=== PATIENT | male | born 1985 | race Caucasian/White ===

== ENCOUNTER 2016-10-31 09:09 | Emergency (ER) | payer SELFPAY ==
--- NOTE | 2016-10-31 09:42 | PDOC ---
General Adult HPI - General Chief Complaint: Drug / Alcohol Use &/or Abuse Stated Complaint: [place]ED [place]/METH USE x1 WEEK Date Seen by Provider: 10/31/16 Time Seen by Provider: 09:15 Source: POSITIVE: Patient Exam Limitations: POSITIVE: No limitations Nurse's Notes Reviewed & Considered: Yes - History of Present Illness Initial Comment: The patient is a 31-year-old male who presents to the emergency department by ambulance from [place]. [place] apparently [place] law enforcement. He states that [place] 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 He reports that he has been using for the past week. He states that he was attempting to get away and get off the methadone go camping. To his knowledge she is unaware of using meth last night. He states that he remembers trying to hide from law enforcement last night and then subsequently woke up this morning lying in a ditch. He currently has no complaints of pain. He had a normal temperature of 97 on arrival here. He denies any current prescription medication use. He states he does not drink alcohol or use any other drugs other than meth. He does report a history of hemochromatosis and last had a phlebotomy about 3 weeks ago. 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 DENIES: Abdominal Pain, Vomitting Musculoskeletal: REPORTS: Denies MS Symptoms Genitourinary: REPORTS: Denies Symptoms Eyes: REPORTS: Denies Symptoms ENT: REPORTS: Denies Symptoms Skin: DENIES: Rash General Adult Exam - General Appearance General Appearance: POSITIVE: Alert, Cooperative, No Acute Distress - HEENT HEENT: POSITIVE: Head Inspection Nml, Eyes Inspection Nml, Ears Inspection Nml, Pharynx Inspect. Nml - Neck Neck: POSITIVE: Normal Inspection - Respiratory Respiratory: POSITIVE: No Respiratory Distress, Breath Sounds Normal - Cardiovascular Cardiovascular: POSITIVE: Regular Rate & Rhythm, No Murmur Peripheral Pulses: Radial (R): 2+, Radial (L): 2+ - Abdomen Abdomen: Soft: (All Quadrants), Denies Tenderness: (All Quadrants), No Distention: (All Quadrants) - Skin Skin: POSITIVE: Normal Color, Other (Track jauregui on his arms with a few open areas of excoriation, no evidence of abscess or infection) - Neurological / Psychological Neurological: POSITIVE: Oriented X3, crib attendant Normal As Tested, Sensation Normal, Other (The patient does have frequent involuntary motor movement/tics) General Adult Progress - Results Reviewed by me Lab Results Reviewed: Yes Lab Results:: Laboratory Results 10/31/16 10/31/16 Range/Units 09:20 09:50 WBC 9.80 (4.8-10.8) 10^3/uL RBC 5.31 (4.70-6.10) 10^6/uL Hgb 15.8 (14.0-18.0) g/dL Hct 44.2 (42.0-52.0) % MCV 83.2 (80-90) FL MCH 29.8 (27-31) PG MCHC 35.7 (33-37) g/dL RDW Std Deviation 39.5 (39-50) fL RDW Coeff of Kit 13.1 (11.5-14.5) % Plt Count 303 (140-350) 10*3/uL MPV 10.3 (7.4-12.2) FL Immature Gran % (Auto) 0.3 (0-5) % Neut % (Auto) 66.4 (50-80) % Lymph % (Auto) 19.4 (10-50) % Mellette % (Auto) 10.8 (5-15) % Eos % (Auto) 2.0 (0-8) % Baso % (Auto) 1.1 H (0-1) % Immature Gran # (Auto) 0.03 10*3/UL Neut # (Auto) 6.50 10*3/UL Lymph # (Auto) 1.90 10*3/uL Mellette # (Auto) 1.06 H (0.3-0.8) 10*3/UL Eos # (Auto) 0.20 10*3/UL Baso # (Auto) 0.11 10*3/UL WBC Morphology Comment Normal morphology (NORM) Plt Morphology Comment Normal morphology (NORM) RBC Morph Comment Normal morphology (NORM) Sodium 140 (135-145) meq/L Potassium 3.7 L (3.8-5.2) meq/L Chloride 106 (98-112) meq/L Carbon Dioxide 24 (23-33) meq/L Anion Gap 10 (5-20) BUN 12 (7-22) mg/dL Creatinine 0.8 (0.70-1.50) mg/dL Estimated GFR > 60 (>60 ml/min/1.73m(2)) BUN/Creatinine Ratio 15.00 (6-20) Glucose 77 L (78-110) mg/dL Calculated Osmolality 288.0 (267-292) mOsm/kg Calcium 9.4 (8.7-10.7) mg/dL Total Bilirubin 2.2 H (0.3-1.2) mg/dL AST 41 (21-57) IU/L ALT 67 (21-72) IU/L Alkaline Phosphatase 57 (38-126) IU/L Total Creatine Kinase 466 H (55-170) IU/L Total Protein 6.9 (6.1-8.0) g/dL Albumin 4.2 (3.5-4.8) g/dL Globulin 2.6 (2.50-4.10) g/dL Albumin/Globulin Ratio 1.60 (1.3-2.0) mg/g Ur Collection Type Clean catch urine Urine Color Yellow Urine Clarity Clear (CLEAR) Urine pH 5.5 (5.0-8.5) Ur Specific [place] >=1.030 (1.005-1.030) U Specif Grav (Refrac) 1.028 Urine Protein Negative (NEG) mg/dl Urine Glucose (UA) Negative (NEG) mg/dL Urine Ketones 80 (NEG) Urine Occult Blood Negative (NEG) Urine Nitrate Negative (NEG) Urine Bilirubin Small (NEG) Urine Urobilinogen 1.0 (0.2) EU/dL Ur Leukocyte Esterase Negative (NEG) Ur Culture Indicated? Culture not set Urine Opiates Screen Negative (NEG) Ur Buprenorphine Negative (NEG) Ur Oxycodone Screen Negative (NEG) Urine Methadone Screen Negative (NEG) Ur Propoxyphene Screen Negative (NEG) Barbiturate Screen Negative (NEG) U Tricyclic Antidepress Negative (NEG) Phencyclidine Screen Negative (NEG) Amphetamines Screen Positive H (NEG) U Methamphetamines Scrn Positive H (NEG) Benzodiazepines Screen Negative (NEG) Cocaine Screen Negative (NEG) U Marijuana (THC) Screen Negative (NEG) Serum Alcohol < 10 (0-10) mg/dL - Patient's Progress MDM / ED Course: An IV was established however the patient refused receiving a bolus of saline. He was able to drink water without any difficulty. His lab work is all essentially unremarkable except for a mildly elevated CPK. His urine is concentrated in his tox screen is positive for amphetamine and methamphetamine. His clinical presentation is consistent with methamphetamine abuse. He appears to be clinically stable and will be discharged home with his family. He is to return to the emergency room if he develops any worsening or change in symptoms. - Consult Counseled: POSITIVE: Patient, RE: Lab Results, RE: DX, RE: Need for F/U Patient Care Time - Estimated PCT Patient Care Time (In Minutes): 20 Vital Signs - Recent Vital Signs Vital Signs: Vital Signs (Last 8 hours) Temp Pulse Pulse Resp BP BP Pulse Ox 10/31/16 09:09 97.0 F 79 79 17 109/90 109/90 98 - VS Reviewed Vital Signs Reviewed: Yes Discharge Clinical Impression: Methamphetamine abuse Discharge Disposition: Discharged to Home Condition: Stable Patient Instructions Given at Discharge: Methamphetamine Abuse (ED) Additional Instructions: Your vital signs and temperature were all normal here in the emergency department. Lab work done here in the emergency department was unremarkable except for mild elevation in your muscle enzymes which is likely related to recent methamphetamine use and lying on the ground. Recommended she push fluids. Return to the emergency room if any worsening or change in symptoms. Follow Up With: NONE,NONE [Primary Care Provider] -
[2016-10-31] MEDS: NORMAL SALINE 10 ML SYRINGE FLUSH IVP PRN (09:50)
[2016-10-31] MEDS: Sodium Chloride 0.9% 1,000 ML PRIMARY IV ONE (09:55)
[2016-10-31 10:01] LABS: BASOPHILS # (AUTO) 0.11 10*3/UL; BASOPHILS % (AUTO) 1.1 % (0-1); HEMATOCRIT 44.2 % (42.0-52.0); HEMOGLOBIN 15.8 g/dL (14.0-18.0); MEAN CORPUSCULAR HEMOGLOBIN 29.8 PG (27-31); MEAN CORPUSCULAR HGB CONC 35.7 g/dL (33-37); MEAN CORPUSCULAR VOLUME 83.2 FL (80-90); MEAN PLATELET VOLUME 10.3 FL (7.4-12.2); MONOCYTES # (AUTO) 1.06 10*3/UL (0.3-0.8); MONOCYTES % (AUTO) 10.8 % (5-15); NEUTROPHILS % (AUTO) 66.4 % (50-80); RED BLOOD COUNT 5.31 10^6/uL (4.70-6.10)
[2016-10-31 10:03] LABS: PLATELET MORPHOLOGY COMMENT NORMAL MORPHOLOGY (NORM); RBC MORPHOLOGY COMMENT NORMAL MORPHOLOGY (NORM); WBC MORPHOLOGY COMMENT NORMAL MORPHOLOGY (NORM)
[2016-10-31 10:13] LABS: BLOOD UREA NITROGEN 12 mg/dL (7-22); CALCIUM 9.4 mg/dL (8.7-10.7); EST GLOMERULAR FILTRATION > 60 (>60 ml/min/1.73m(2)); SERUM ALBUMIN 4.2 g/dL (3.5-4.8)
[2016-10-31 10:24] LABS: BILIRUBIN,URINE SMALL (NEG); CLARITY,URINE CLEAR (CLEAR); COLOR,URINE YELLOW; GLUCOSE, URINE (UA) NEGATIVE (NEG); NITRATE,URINE NEGATIVE (NEG); OCCULT BLOOD,URINE NEGATIVE (NEG); PH,URINE 5.5 (5.0-8.5); PROTEIN,URINE NEGATIVE (NEG)
[2016-10-31 10:28] LABS: URINE SAMPLE TYPE CLEAN CATCH URINE; URINE SPECIFIC GRAVITY - MAN 1.028
[2016-10-31 10:47] LABS: AMPHETAMINE SCREEN POSITIVE (NEG); CANNABINOID SCREEN,URINE NEGATIVE (NEG); COCAINE SCREEN NEGATIVE (NEG); METHADONE URINE SCREEN NEGATIVE (NEG); METHAMPHETAMINES SCREEN,URINE POSITIVE (NEG); OPIATE SCREEN,URINE NEGATIVE (NEG)
[2016-10-31 15:20] VITALS: RESP 15; TEMP 97.1
== END 2016-10-31 10:42 | disposition home or self-care (01) ==
LOC: ER 09:09
DX: F15.10 Other stimulant abuse, uncomplicated (principal)
CPT/HCPCS: 80053; 80305; 80320; 81003; 82550; 85025; 99283